=== PATIENT | female | born 1975 | race Caucasian/White ===

== ENCOUNTER 2019-06-16 18:58 | Emergency (ER) | payer OTHER ==
[2019-06-16] MEDS ORDERED: TETANUS/DIPHTHERIA/PERTUSSIS 0.5 ML SYRINGE IM ONE (19:22)
--- NOTE | 2019-06-16 19:45 | ED Physician Documentation ---
PD HPI UPPER EXT INJURY - Stated complaint Stated Complaint: R THUMB LAC - Chief complaint Chief Complaint: Laceration - History obtained from History obtained from: Patient (44-year-old woman not up-to-date on tetanus cut her right thumb on a mandolin slicer at home just prior to arrival.) Review of Systems Constitutional: reports: Reviewed and negative Cardiac: reports: Reviewed and negative Respiratory: reports: Reviewed and negative PD PAST MEDICAL HISTORY - Past Medical History Past Medical History: Yes Derm: Other Other Past Medical History: Acne - Past Surgical History Past Surgical History: Yes /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, Other - Present Medications Home Medications: Ambulatory Orders Medication Instructions Recorded Confirmed Benzoyl Peroxide [Acne Medication] 06/16/19 - Allergies Allergies/Adverse Reactions: Allergies Allergy/AdvReac Type Severity Reaction Status Date / Time No Known Drug Allergies Allergy Verified 06/16/19 19:00 - Social History Does the pt smoke?: Yes Smoking Status: Current every day smoker Does the pt drink ETOH?: No Does the pt have substance abuse?: No - Immunizations Immunizations are current?: No - POLST Patient has POLST: No PD ED PE NORMAL - Vitals Vital signs reviewed: Yes - General General: Alert and oriented X 3, No acute distress (On the pulp of the right thumb there is a very shallow flap laceration measuring about 1 cm in Circumference) - Back Back: No CVA TTP, No spinal TTP - Psych Psych: Normal mood, Normal affect Results - Vitals Vitals: Vital Signs - 24 hr 06/16/19 19:00 Temperature 36.5 C Heart Rate 96 Respiratory 16 Rate Blood Pressure 142/99 H O2 Saturation 100 Oxygen O2 Source Room air Procedures - Laceration (location) R thumb Length in cm: 1 Wound type: Flap, Superficial Wound Preparation: Irrigated copiously NS Skin layer closure: Dermabond, Steri strips Other: Tetanus booster given Complexity: Simple Departure - Departure Disposition: 01 Home, Self Care Clinical Impression: Laceration Condition: Good Record reviewed to determine appropriate education?: Yes Instructions: ED Laceration Ext Skin Glue Comments: Your blood pressure was elevated today on check into the emergency department. This does not mean that you have hypertension, it is a common phenomenon to come to the emergency department and have elevated blood pressure. I recommend that you see your primary care physician within the week to have it rechecked when you are feeling better.
[2019-06-16 19:51] VITALS: BP 148/103
== END 2019-06-16 19:50 | disposition home or self-care (01) ==
LOC: ED 18:58
DX: S61.011A Laceration without foreign body of right thumb without damage to nail, initial encounter (principal); W27.4XXA Contact with kitchen utensil, initial encounter; Y93.G1 Activity, food preparation and clean up; Y92.009 Unspecified place in unspecified non-institutional (private) residence as the place of occurrence of the external cause; Z23 Encounter for immunization; R03.0 Elevated blood-pressure reading, without diagnosis of hypertension; F17.200 Nicotine dependence, unspecified, uncomplicated
CPT/HCPCS: 12001; 90471; 99283

== ENCOUNTER 2020-05-11 12:21 | Emergency (ER) | payer OTHER ==
[2020-05-11] MEDS ORDERED: METOPROLOL 5 MG/5 ML VIAL IVP STA (12:42)
--- NOTE | 2020-05-11 12:44 | ED Physician Documentation ---
History of Present Illness - Stated complaint Stated Complaint: HIGH BP - Chief complaint Chief Complaint: Cardiac - History obtained from History obtained from: Patient - Additonal information Additional information: 44-year-old woman with history of hypertension and PCOS, otherwise healthy. She started spironolactone about 2 weeks ago for both blood pressure control and to work on her PCOS. This morning she was in her usual state of health, get ready for work when she started to develop a sensation of a rapid heartbeat. There is very mild shortness of breath with it and some dizziness but no chest pain. No pedal edema or calf pain. She is never had this before. She does not drink caffeine and there was no stimulant use associated with this. 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 - Present Medications Home Medications: Ambulatory Orders Medication Instructions Recorded Confirmed Benzoyl Peroxide [Acne Medication] 06/16/19 Metoprolol Succinate [Toprol Xl] 25 mg PO DAILY #90 tablet 05/11/20 - Allergies Allergies/Adverse Reactions: Allergies Allergy/AdvReac Type Severity Reaction Status Date / Time No Known Drug Allergies Allergy Verified 06/16/19 19:00 - Social History Does the pt smoke?: Yes Smoking Status: Current every day smoker Does the pt drink ETOH?: No Does the pt have substance abuse?: No - Immunizations Immunizations are current?: No - POLST Patient has POLST: No PD ED PE NORMAL - Vitals Vital signs reviewed: Yes - General General: Alert and oriented X 3, Other (Anxious and is tachycardic with hypertension as well) - HEENT HEENT: PERRL, EOMI - Neck Neck: Supple, no meningeal sign, No bony TTP - Cardiac Cardiac: Other (Rapid but regular without murmur) - Respiratory Respiratory: No respiratory distress, Clear bilaterally - Abdomen Abdomen: Non tender - Back Back: No CVA TTP, No spinal TTP - Derm Derm: Normal color, Warm and dry - Extremities Extremities: No edema, No calf tenderness / cord - Neuro Neuro: Alert and oriented X 3, Normal speech Results - Vitals Vitals: Vital Signs - 24 hr 05/11/20 05/11/20 05/11/20 12:25 12:59 13:12 Temperature 36.6 C Heart Rate 143 H 127 H 124 H Respiratory 16 17 19 Rate Blood Pressure 177/116 H 186/122 H 176/108 H O2 Saturation 100 99 100 05/11/20 05/11/20 05/11/20 13:24 13:29 13:33 Temperature Heart Rate 130 H 112 H 94 Respiratory 21 15 14 Rate Blood Pressure 163/99 H 156/111 H 164/108 H O2 Saturation 99 100 99 05/11/20 05/11/20 05/11/20 13:38 13:50 14:23 Temperature 36.9 C Heart Rate 97 99 100 Respiratory 15 18 18 Rate Blood Pressure 163/104 H 151/100 H 153/103 H O2 Saturation 99 99 99 Oxygen O2 Source Room air - EKG (time done) 1231 Rate: Rate (enter#) (136) Rhythm: Sinus tachycardia [employer]: Normal Intervals: Normal DC QRS: Normal Ischemia: Normal ST segments Computer interpretation: Agree with computer - Labs Labs: Laboratory Tests 05/11/20 05/11/20 05/11/20 13:10 14:23 14:23 WBC 10.2 RBC 4.49 Hgb 15.3 Hct 44.7 MCV 99.6 H MCH 34.1 H MCHC 34.2 RDW 11.3 L Plt Count 178 MPV 10.1 Neut # (Auto) 8.2 H Lymph # (Auto) 1.2 L [place] # (Auto) 0.7 Eos # (Auto) 0.0 Baso # (Auto) 0.1 Absolute Nucleated RBC 0.00 Nucleated RBC % 0.0 D-Dimer 211.2 Sodium Potassium Chloride Carbon Dioxide Anion Gap BUN Creatinine Estimated GFR (MDRD) Glucose Calcium Total Bilirubin AST ALT Alkaline Phosphatase Troponin I High Sens Total Protein Albumin Globulin Albumin/Globulin Ratio Urine Color DARK YELLOW Urine Clarity CLEAR Urine pH 7.0 Ur Specific [place] 1.025 Urine Protein 30 H Urine Glucose (UA) NEGATIVE Urine Ketones 15 H Urine Occult Blood TRACE-INTA Urine Nitrite NEGATIVE Urine Bilirubin NEGATIVE Urine Urobilinogen 1 (NORMAL) Ur Leukocyte Esterase NEGATIVE Urine RBC 0-5 Urine WBC 0-3 Ur Squamous Epith Cells FEW Squamous Urine Bacteria Moderate H Urine Mucus Moderate Strands Ur Microscopic Review INDICATED Urine Culture Comments INDICATED Urine HCG, Qual NEGATIVE 05/11/20 05/11/20 14:23 14:23 WBC RBC Hgb Hct MCV MCH MCHC RDW Plt Count MPV Neut # (Auto) Lymph # (Auto) [place] # (Auto) Eos # (Auto) Baso # (Auto) Absolute Nucleated RBC Nucleated RBC % D-Dimer Sodium 137 Potassium 3.7 Chloride 99 L Carbon Dioxide 24 Anion Gap 14.0 H BUN 8 Creatinine 0.6 Estimated GFR (MDRD) 110 Glucose 105 H Calcium 9.4 Total Bilirubin 1.2 H AST 62 H ALT 36 Alkaline Phosphatase 61 Troponin I High Sens 4.5 Total Protein 7.2 Albumin 3.9 Globulin 3.3 Albumin/Globulin Ratio 1.2 Urine Color Urine Clarity Urine pH Ur Specific [place] Urine Protein Urine Glucose (UA) Urine Ketones Urine Occult Blood Urine Nitrite Urine Bilirubin Urine Urobilinogen Ur Leukocyte Esterase Urine RBC Urine WBC Ur Squamous Epith Cells Urine Bacteria Urine Mucus Ur Microscopic Review Urine Culture Comments Urine HCG, Qual PD MEDICAL DECISION MAKING - ED course ED course: 44-year-old woman with rapid heart rate today, it improved significantly and she felt better after IV metoprolol. No evidence of ACS, PE. Departure - Departure Disposition: Home, Self Care Clinical Impression: Sinus tachycardia by electrocardiogram Condition: Good Record reviewed to determine appropriate education?: Yes Instructions: ED Palpitations Prescriptions: Metoprolol Succinate [Toprol Xl] 25 mg PO DAILY #90 tablet Comments: Happy birthday tomorrow, glad you are feeling better. Return if worsening. I would stop the spironolactone and start the metoprolol instead. Follow-up with your doctor in about a week for a blood pressure check. If your heart rate goes high again you can double the metoprolol to twice a day.
[2020-05-11 13:18] LABS: GLUCOSE, URINE (UA) NEGATIVE (NEGATIVE); KETONES,URINE (UA) 15 mg/dL (NEGATIVE); LEUKOCYTE ESTERASE, URINE NEGATIVE (NEGATIVE); NITRITE,URINE NEGATIVE (NEGATIVE); OCCULT BLOOD,URINE TRACE-INTA (NEGATIVE); PROTEIN,URINE 30 mg/dL (NEGATIVE); UROBILINOGEN,URINE 1 (NORMAL) E.U./dL (NORMAL)
[2020-05-11 13:19] LABS: CLARITY,URINE CLEAR (CLEAR)
[2020-05-11 13:20] LABS: BILIRUBIN,URINE NEGATIVE (NEGATIVE); HCG UR QUAL NEGATIVE; ICTOTEST,URINE NEGATIVE
[2020-05-11 13:35] LABS: BACTERIA,URINE Moderate /HPF (None Seen); MUCUS,URINE Moderate Strands; RBC,URINE 0-5 /HPF (0-5); SQUAMOUS EPITHELIAL CELL,UR FEW Squamous (<= Few)
[2020-05-11 14:34] LABS: BASOPHILS # (AUTO) 0.1 10^3/uL (0.0-0.1); BASOPHILS % (AUTO) 0.9 %; EOSINOPHILS % (AUTO) 0.4 %; HGB - HEMOGLOBIN 15.3 g/dL (12.0-16.0); LYMPHOCYTES # (AUTO) 1.2 10^3/uL (1.5-3.5); LYMPHOCYTES % (AUTO) 11.2 %; MEAN CORPUSCULAR HEMOGLOBIN 34.1 pg (27.0-31.0); MEAN CORPUSCULAR HGB CONC 34.2 g/dL (32.0-36.0); MEAN CORPUSCULAR VOLUME 99.6 fL (81.0-99.0); MEAN PLATELET VOLUME 10.1 fL (7.9-10.8); MONOCYTES # (AUTO) 0.7 10^3/uL (0.0-1.0); MONOCYTES % (AUTO) 6.8 %; NEUTROPHILS # (AUTO) 8.2 10^3/uL (1.5-6.6); NEUTROPHILS % (AUTO) 80.4 %; PLT - PLATELET COUNT 178 10^3/uL (130-450); RED BLOOD COUNT 4.49 10^6/uL (4.20-5.40); RED CELL DISTRIBUTION WIDTH 11.3 % (12.0-15.0); WHITE BLOOD COUNT 10.2 x10^3/uL (4.8-10.8)
[2020-05-11 14:54] LABS: ALBUMIN 3.9 g/dL (3.2-5.5); ALBUMIN/GLOBULIN RATIO 1.2 (1.0-2.2); BILIRUBIN,TOTAL 1.2 mg/dL (0.2-1.0); CALCIUM 9.4 mg/dL (8.5-10.3); CREATININE 0.6 mg/dL (0.4-1.0); TOTAL PROTEIN 7.2 g/dL (6.7-8.2)
[2020-05-11 15:25] VITALS: BP 151/99
== END 2020-05-11 15:32 | disposition home or self-care (01) ==
LOC: ED 12:21
DX: R00.0 Tachycardia, unspecified (principal); I10 Essential (primary) hypertension; E28.2 Polycystic ovarian syndrome; F17.200 Nicotine dependence, unspecified, uncomplicated
CPT/HCPCS: 36415; 80053; 81001; 81003; 81025; 84484; 85025; 85379; 87086; 93005; 96374; 99284

== ENCOUNTER 2023-01-17 10:09 | Outpatient (CLI) | payer OTHER ==
--- NOTE | 2023-01-17 16:47 | XRAY Report ---
PROCEDURE: Foot 2 View LT INDICATIONS: FOOT PAIN TECHNIQUE: 2 views of the foot were acquired. COMPARISON: None. FINDINGS: Bones: No fractures or dislocations. No suspicious bony lesions. Soft tissues: No suspicious soft tissue calcifications or masses. IMPRESSION: No acute bony abnormality. Reviewed by: Donta Cleveland MD on 01/17/2023 4:45 PM PDT Approved by: Donta Cleveland MD on 01/17/2023 4:45 PM PDT Station ID: [id number]
== END 2023-01-17 10:10 | disposition home or self-care (01) ==
LOC: DI 10:09
PROVIDERS: ATTEND Nurse Practitioner
DX: M79.672 Pain in left foot (principal)